=== PATIENT | male | born 1970 | race Hispanic/Latino ===

== ENCOUNTER 2021-04-30 16:18 | Emergency (ER) | payer OTHER ==
[~2021-04-30] VITALS: Ht 165.1 cm; Wt 88.5 kg
[~2021-04-30 16:18] MED LIST: ALBU8.5H8 IH; D-ME1POW16 PO; NIRM1TAB PO
[2021-04-30] MEDS ORDERED: HYDROXYZINE 25 MG TABLET ONE (21:38)
[2021-04-30] MEDS ORDERED: HYDROXYZINE 25 MG TABLET PO ONE (22:00)
[2021-04-30] MEDS ORDERED: HYDR-4030 PO (22:55)
[2021-04-30 23:04] VITALS: BP 122/56
== END 2021-04-30 23:05 | disposition home or self-care (01) ==
LOC: EDH 16:18
DX: U07.1 COVID-19 (principal); F41.9 Anxiety disorder, unspecified; Z79.899 Other long term (current) drug therapy
CPT/HCPCS: 71045